=== PATIENT | male | born 2000 | race Caucasian/White ===

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

== ENCOUNTER 2021-02-01 16:08 | Emergency (ER) | payer OTHER ==
[2021-02-01] MEDS ORDERED: BACTRIM DS TAB1 EACH PO (18:36)
[2021-02-01] MEDS ORDERED: CEPHALEXIN500 MG PO (18:36)
== END 2021-02-01 18:42 | disposition home or self-care (01) ==
LOC: ER1 16:08
DX: L03.115 Cellulitis of right lower limb (principal); L02.415 Cutaneous abscess of right lower limb; F17.210 Nicotine dependence, cigarettes, uncomplicated
CPT/HCPCS: 99283